=== PATIENT | male | born 1955 | race Caucasian/White ===

== ENCOUNTER → 2019-06-17 | Outpatient (CLI) | payer MEDICARE, OTHER | LOC: RAD 13:52 | PROVIDERS: ATTEND Internal Medicine | DX: R07.9 Chest pain, unspecified (principal) | CPT/HCPCS: 93306 ==

== ENCOUNTER → 2020-07-10 | Outpatient (CLI) | payer MEDICARE, OTHER ==
--- NOTE | 2020-07-11 16:27 | Diagnostic Imaging Report ---
Thyroid Scan with Single Uptake Reason for exam: E05.90 Thyrotoxicosis, unspecified without thyrotoxic storm Radiopharmaceutical: I-123 José Miguel 0.27 mCi Report: After oral administration of I-123 José Miguel, the 6-hour thyroid uptake of iodine is 44% (normal 4-14%). Images of the thyroid was obtained in the anterior and anterior oblique projections. The thyroid lobes appear symmetric in size. The thyroid is generally enlarged. There is homogeneous distribution of tracer activity throughout both lobes. No focal areas of increased or decreased tracer activity are identified within the thyroid lobes or isthmus. The thyroid is in a normal anatomic location. A pyramidal lobe is not seen. There is no aberrant functioning thyroid tissue seen in the area scanned. 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 No scan evidence of nodular thyroid disease. Signed by: Dr. Yoselyn Lomax M.D. on 07/11/2020 4:23 PM
== END ==
LOC: NM 06-19 09:52
PROVIDERS: ATTEND Internal Medicine
DX: E05.90 Thyrotoxicosis, unspecified without thyrotoxic crisis or storm (principal)
CPT/HCPCS: 78014; A9516